=== PATIENT | female | born 1960 ===

== ENCOUNTER 2021-08-19 06:03 | Day surgery (SDC) | payer OTHER ==
[2021-08-19] MEDS ORDERED: 0.9%NACL 1000ML 1,000 ML IV ONE (06:19)
[2021-08-19 06:26] VITALS: BP 136/67
[2021-08-19] MEDS ORDERED: PROPOFOL 10 MG/ML 20ML VIAL IV ONE ×3 (07:40→07:48)
[2021-08-19] MEDS ORDERED: LIDOCAINE PF 100MG/5ML (2%) SYRINGE 5ML ONE (07:41)
[2021-08-19 08:30] VITALS: BP 99/49
[2021-08-19 08:35] VITALS: BP 107/53
[2021-08-19 08:40] VITALS: BP 117/56
[2021-08-19 08:45] VITALS: BP 115/67
[2021-08-19 09:00] VITALS: BP 118/68
== END 2021-08-19 09:00 | disposition home or self-care (01) ==
LOC: DAH 06:03
PROVIDERS: ATTEND Internal Medicine
DX: Z12.11 Encounter for screening for malignant neoplasm of colon (principal); Z20.822 Contact with and (suspected) exposure to COVID-19; K63.5 Polyp of colon; Z98.891 History of uterine scar from previous surgery
CPT/HCPCS: 45385; 87635; A4215 ×3; A4221; A4222; A4223; A4606; A4620 ×2; A4663; C9803; J2001; J2704 ×3; J7030

== ENCOUNTER → 2023-06-17 | Outpatient (CLI) | payer OTHER ==
[~2023-06-17] MED LIST: IOHEXOL 350 MG/ML 100ML INFUS..BTL IV ONE
== END | disposition home or self-care (01) ==
LOC: RAH 10:41
PROVIDERS: ATTEND Student in an Organized Health Care Education/Training Program
DX: R07.9 Chest pain, unspecified (principal); M47.815 Spondylosis without myelopathy or radiculopathy, thoracolumbar region
CPT/HCPCS: 75574; Q9967